=== PATIENT | female | born 1995 | race Caucasian/White ===

== ENCOUNTER 2017-01-07 23:49 | Emergency (ER) | payer OTHER ==
[~2017-01-07] VITALS: Ht 160 cm; Wt 59.3 kg
[~2017-01-07 23:49] MED LIST: NOHOMEMEDS; PROZAC10 M1 PO
[2017-01-08] MEDS ORDERED: FLEXERIL10 MG PO (00:48)
[2017-01-08] MEDS ORDERED: NAPROSYN500 MG PO (00:48)
[2017-01-08 01:18] VITALS: BP 122/85
== END 2017-01-08 01:19 | disposition home or self-care (01) ==
LOC: EME 23:49 → EXP 23:49
DX: S20.312A Abrasion of left front wall of thorax, initial encounter (principal); S50.811A Abrasion of right forearm, initial encounter; S80.812A Abrasion, left lower leg, initial encounter; V89.2XXA Person injured in unspecified motor-vehicle accident, traffic, initial encounter; Y92.411 Interstate highway as the place of occurrence of the external cause
CPT/HCPCS: 99281; 99283